=== PATIENT | female | born 1995 | race African-American/Black ===

== ENCOUNTER 2020-01-15 15:55 | Emergency (ER) | payer MEDICAID ==
[~2020-01-15] VITALS: Ht 157.5 cm; Wt 91.0 kg
[2020-01-15 16:04] VITALS: BP 136/83
[2020-01-15 16:42] LABS: CLARITY URINE CLOUDY (CLEAR); KETONES URINE TRACE (NEGATIVE); LEUKOCYTE ESTERASE URINE 2+ (NEGATIVE); NITRITE URINE NEGATIVE (NEGATIVE); OCCULT BLOOD URINE NEGATIVE (NEGATIVE); PH URINE 6.5 (4.5-8.0); PROTEIN URINE 1+ (NEGATIVE); UROBILINOGEN URINE 0.2 E.U./dL (0.2-1.0)
[2020-01-15 16:43] LABS: COLOR URINE AMBER (YELLOW)
[2020-01-15] MEDS ORDERED: IBUPROFEN 800MG TABLET PO ONE (17:00)
== END 2020-01-15 19:16 | disposition home or self-care (01) ==
LOC: ER 15:55
DX: N89.8 Other specified noninflammatory disorders of vagina (principal); D27.1 Benign neoplasm of left ovary; N39.0 Urinary tract infection, site not specified
CPT/HCPCS: 76830; 76856; 81003; 99284